=== PATIENT | female | born 1960 | race Caucasian/White ===

== ENCOUNTER → 2023-10-12 07:15 | Outpatient (REF) | payer OTHER, SELFPAY | LOC: WDC 07:15 | PROVIDERS: ATTENDING PHYSICIAN Physician Assistant Medical | DX: Z12.31 Encounter for screening mammogram for malignant neoplasm of breast (principal) | CPT/HCPCS: 77063; 77067 ==

== ENCOUNTER → 2024-09-20 09:57 | Outpatient (REF) | payer OTHER, SELFPAY | LOC: HWRAD 09:57 | PROVIDERS: ATTENDING PHYSICIAN Physician Assistant Medical | DX: R10.11 Right upper quadrant pain (principal) | CPT/HCPCS: 76700 ==